=== PATIENT | female | born 1985 | race Caucasian/White ===

== ENCOUNTER → 2021-03-09 | Outpatient (CLI) | payer OTHER | LOC: COL.RAD 12:36 | DX: G43.109 Migraine with aura, not intractable, without status migrainosus (principal); R20.2 Paresthesia of skin; M62.89 Other specified disorders of muscle; J34.89 Other specified disorders of nose and nasal sinuses | CPT/HCPCS: A9585 ==

== ENCOUNTER → 2021-03-16 | Outpatient (CLI) | payer OTHER | LOC: COL.RAD 07:48 | DX: M51.36 Other intervertebral disc degeneration, lumbar region (principal) | CPT/HCPCS: A9585 ==

== ENCOUNTER 2021-03-22 09:45 | Outpatient (RCR) | payer OTHER | END 2021-04-05 | disposition home or self-care (01) | LOC: WSPT | DX: M62.81 Muscle weakness (generalized) (principal) ==

== ENCOUNTER 2021-06-07 09:29 | Outpatient (RCR) | payer OTHER | END 2021-07-03 | disposition home or self-care (01) | LOC: WSPT | DX: M54.2 Cervicalgia (principal); M54.50 Low back pain, unspecified; G89.29 Other chronic pain ==